=== PATIENT | male | born 1960 | race Caucasian/White ===

== ENCOUNTER 2019-07-28 15:04 | Observation (INO) | payer BC ==
[2019-07-28 15:14] VITALS: RESP 18
[2019-07-28] MEDS ORDERED: ACETAMINOPHEN TAB 325 MG TAB PO PRN (15:22)
[2019-07-28] MEDS ORDERED: NALOXONE 0.4 MG/ML 1 ML VIAL IV PRN (15:22)
--- NOTE | 2019-07-28 15:34 | ED ---
General Adult HPI - General Chief complaint: Neuro Symptoms/Deficit Stated complaint: Neuro Symptoms Time Seen by Provider: 07/28/19 15:07 Source: patient, EMS, RN notes reviewed, old records reviewed Mode of arrival: EMS Limitations: altered mental status - History of Present Illness Initial comments: 58-year-old male presented for evaluation of altered mental status and confusion. Around lunchtime today the patient had developed some confusion, he was confused about which leg to place his knee brace on. He did not know the day of the week or time. He was brought to [facility] for evaluation. He received workup including laboratory testing and head CT. Ultimately he was transferred to this institution for admission and neurology consultation. The patient has no complaints time my evaluation. He is alert and oriented 2, able to answer most questions. - Related Data Allergies Allergy/AdvReac Type Severity Reaction Status Date / Time aspirin Allergy Rash/Hives Verified 07/28/19 15:14 Review of Systems ROS Statement: Those systems with pertinent positive or pertinent negative responses have been documented in the HPI. ROS Other: All systems not noted in ROS Statement are negative. Past Medical History Past Medical History: Hyperlipidemia, Hypertension History of Any Multi-Drug Resistant Organisms: None Reported Past Surgical History: Orthopedic Surgery Additional Past Surgical History / Comment(s): right knee surgery Past Psychological History: No Psychological Hx Reported Smoking Status: Former smoker Past Alcohol Use History: None Reported Past Drug Use History: None Reported General Exam Limitations: altered mental status General appearance: alert, in no apparent distress Head exam: Present: atraumatic, normocephalic Eye exam: Present: normal appearance, PERRL ENT exam: Present: normal exam Neck exam: Present: normal inspection. Absent: tenderness, meningismus Respiratory exam: Present: normal lung sounds bilaterally. Absent: respiratory distress, wheezes Cardiovascular Exam: Present: regular rate, normal rhythm GI/Abdominal exam: Present: soft. Absent: distended, tenderness, guarding Extremities exam: Present: normal inspection, normal capillary refill. Absent: pedal edema Neurological exam: Present: alert, CN II-XII intact. Absent: oriented X3, motor sensory deficit (No focal findings) Psychiatric exam: Present: normal affect, normal mood Skin exam: Present: warm, dry, intact. Absent: cyanosis, diaphoretic Course Vital Signs 07/28/19 15:06 Temperature 97.8 F Pulse Rate 79 Respiratory 18 Rate Blood Pressure 146/98 O2 Sat by Pulse 98 Oximetry Medical Decision Making - Medical Decision Making 58-year-old transferred for neurology consultation. Patient is well-appearing, stable vitals, he has a nonfocal neurologic exam. Head CT from [facility] was negative for acute intracranial pathology. Patient received a chest x-ray which was negative for acute cardio pulmonary disease. He had normal electrolytes, normal kidney function, normal blood glucose. He had a white blood cell count of 8.7 hemoglobin 14.7. His alcohol level was 0. Denying any complaints time my evaluation. He is admitted from the emergency department, case is discussed with Dr. Marte he will admit. Disposition Clinical Impression: AMS (altered mental status) Disposition: ADMITTED IP TO THIS [facility] Condition: Stable Is patient prescribed a controlled substance at d/c from ED?: No Referrals: Lorenzo Pham DO [Primary Care Provider] - 1-2 days Decision to Admit Reason: Admit from EC Decision Date: 07/28/19 Decision Time: 15:33
--- NOTE | 2019-07-28 17:39 | P.CNNES ---
History of Present Illness Consult date: 07/28/19 Requesting physician: Bright Baxter Reason for Consult: Altered mental status History of Present Illness: Patient is a 58-year-old male came to the hospital for evaluation of altered mental status and confusion. Patient at this time does not remember what happened to him. He does not know how he came to the hospital. He does not know what happened this morning, or yesterday. He thinks that he was [place] the chimney, which he does not remember when he was doing it, and if he was actually doing it or dreaming. Patient does know that he lives with his , has 3 daughters. 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 History obtained from electronic medical records as below. Patient was brought to the hospital at 1 PM today at [facility] for altered mental status. His blood pressure on arrival was 139/83, pulse rate 74, patient was afebrile. It was reported in the [facility] ED report, the patient's brought him to the hospital secondary to her noticing that he was not acting himself. He was fine when he woke up in the morning. At 11 AM she left him home to run errands at which time she stated he was acting himself. Upon her return at around 12:30 PM, she noticed that he was confused had issues with short-term memory and was acting unusual. She mentioned that he was putting in a knee brace on the wrong leg. He could not remember what day it was. He was brought to the hospital by his . Last night and this morning he was perfectly fine. There is no report of cough, cold flu fever chills shortness of breath or any other complaints. Patient was transferred to [facility] as a direct admit for neurological evaluation. Patient had an EKG which showed sinus rhythm. Patient's blood test shows normal CMP although AST is minimally elevated at 38. Blood alcohol level negative, lipase normal CBC normal, glucose 67. Chest x-ray is normal. CT head is normal. Paranasal sinuses clear. Patient has history of hypertension but no diabetes. Patient has hyperlipidemia. He takes medication for blood pressure and cholesterol but does not take any aspirin. Patient states he has history of headaches a lot when he was a child, but he has outgrown it. Not sure if these are migraines. Did not use to get any focal symptoms with these headaches. Patient denies any numbness tingling focal weakness problem with the vision, headache. Does not remember hitting his head. No history of seizures. He denies any tobacco use, drinks alcohol 3-4 on the weekend. Does not do any drugs. Denies personal or family history of epilepsy. Review of Systems As above in detail. Denies any headache with the vision process. Denies diplopia, dysphagia. Denies nausea vomiting diarrhea. Denies headache injury. No history of seizures. On 14 point review of systems unremarkable. Past Medical History Past Medical History: Hyperlipidemia, Hypertension History of Any Multi-Drug Resistant Organisms: None Reported Past Surgical History: Orthopedic Surgery Additional Past Surgical History / Comment(s): right knee surgery Past Psychological History: No Psychological Hx Reported Smoking Status: Former smoker Past Alcohol Use History: None Reported Past Drug Use History: None Reported Medications and Allergies Home Medications Medication Instructions Recorded Confirmed Type Atorvastatin [Lipitor] 80 mg PO HS 07/28/19 07/28/19 History Ezetimibe [Zetia] 10 mg PO DAILY 07/28/19 07/28/19 History Lisinopril-Hctz 20-12.5 mg 1 tab PO DAILY 07/28/19 07/28/19 History [Zestoretic 20-12.5] amLODIPine [Norvasc] 5 mg PO DAILY 07/28/19 07/28/19 History traMADol HCl [Ultram] 50 mg PO Q6H PRN 07/28/19 07/28/19 History Allergies Allergy/AdvReac Type Severity Reaction Status Date / Time aspirin Allergy Rash/Hives Verified 07/28/19 16:43 Physical Examination - Vital Signs Vital Signs: Vital Signs Temp Pulse Resp BP Pulse Ox 07/28/19 15:06 97.8 F 79 18 146/98 98 Intake and Output 07/28/19 07/28/19 07/28/19 06:59 14:59 22:59 Other: Weight 122.47 kg On examination patient is a middle aged male, in no distress. Patient is alert and awake. Patient knows his date of and that he is 58 years of age. He knows his address. Patient could not tell what month or the year is it. He did look at the front board as stated was 07/28/2019. He also looked at the front board stating that he is in [facility] in [place]. Otherwise he probably did not know where he was at. Patient does not remember what time he went to bed last night, what time he woke up this morning, or what he did yesterday or today. Speech and language functions are normal. Attention and concentration is slightly limited, whereas fund of knowledge is difficult to assess. On cranial nerve examination, pupils are round and reactive to light, visual heredia are full on confrontation. Extraocular muscles are intact with no nystagmus. Face is symmetric, tongue protrudes the midline. Palatal elevation and sensation normal. On muscle strength testing there is no pronator drift and the strength is normal in arms and legs distally and proximally. Reflexes are 1+ and plantars downgoing sensory touch is equal. No ataxia for [id number] testing. Tone and bulk of muscles normal. Sensory touch is equal with no neglect on double simultaneous stimulation. There is no obvious bruit, S1 and S2 audible. Peripheral pulses present. Assessment and Plan Assessment: * 58-year-old male admitted with acute onset of amnesia. Possible transient global amnesia. Patient apparently has some degree of antegrade as well as retrograde amnesia. Rule out CVA, partial seizure. Denies any history of head trauma. * Hypertension * Hyperlipidemia * Obesity Plan: * We will perform an MRI of the brain with and without contrast to rule CVA or mass lesion. MRA of the head to rule out any intracranial atherosclerosis or aneurysm. * Carotid Doppler to rule out stenosis. * 2-D echo * EEG. * Further management based upon above test results.
[2019-07-28] MEDS ORDERED: traMADol 50 MG TAB PO PRN (20:42)
--- NOTE | 2019-07-28 22:09 | US ---
EXAMINATION TYPE: US carotid duplex BILAT DATE OF EXAM: 07/28/2019 COMPARISON: NONE CLINICAL HISTORY: Amnesia, CVA, ?seizure. Amnesia, CVA, seizure. HTN. Hyperlipidemia. EXAM MEASUREMENTS: RIGHT: Peak Systolic Velocity (PSV) cm/sec ----- Right CCA: 95.1 ----- Right ICA: 97.7 ----- Right ECA: 137.8 ICA/CCA ratio: 1.0 RIGHT: End Diastole cm/sec ----- Right CCA: 24.1 ----- Right ICA: 20.9 ----- Right ECA: 18.3 LEFT: Peak Systolic Velocity (PSV) cm/sec ----- Left CCA: 102.8 ----- Left ICA: 92.0 ----- Left ECA: 118.9 ICA/CCA ratio: 0.9 LEFT: End Diastole cm/sec ----- Left CCA: 28.7 ----- Left ICA: 27.2 ----- Left ECA: 22.3 VERTEBRALS (direction of flow): Right Vertebral: Antegrade Left Vertebral: Antegrade Rhythm: Normal Limited visibility of right distal ICA. Elevated velocities obtained bilateral ECA. Hyperechoic plaqu e seen left carotid bifurcation. IMPRESSION: There is antegrade flow in the vertebral arteries. There is bilateral plaque formation and less than 50% stenosis in both internal carotid arteries. Criteria for Assigning % of Stenosis / Diameter reduction (Estimation based on the indirect measurements of the internal carotid artery velocities (ICA PSV). 1. Normal (no stenosis)=ICA PSV < 125 cm/s: ratio < 2.0: ICA EDV<40 cm/s. 2. Less than 50% stenosis=ICA PSV < 125 cm/s: ratio < 2.0: ICA EDV<40 cm/s. 3. 50 to 69% stenosis=ICA PSV of 125 to 230 cm/s: ration 2.0 ? 4.0: ICA EDV 40-100 cm/s. 4. Greater than 70% stenosis to near occlusion= ICA PSV > 230 cm/s: ratio > 4.0: ICA EDV > 100 cm/s. 5. Near occlusion= ICA PSV velocities may be low or undetectable: variable ratio and ICA EDV. 6. Total occlusion=unable to detect flow.
[2019-07-28] MEDS: ATORVASTATIN 80 MG TAB PO SCH (22:30)
[2019-07-28] MEDS: ENOXAPARIN 40 MG/0.4 ML SYRINGE SQ SCH (22:30)
[2019-07-28] MEDS: amLODIPine 5 MG TAB PO SCH (22:30)
[2019-07-29] MEDS ORDERED: EZETIMIBE 10 MG TAB PO SCH (09:00)
[2019-07-29] MEDS ORDERED: LISINOPRIL-HCTZ 20-12.5 MG 1 EACH TAB PO SCH (09:00)
[2019-07-29] MEDS: ENOXAPARIN 40 MG/0.4 ML SYRINGE SQ SCH (09:17)
[2019-07-29] MEDS: amLODIPine 5 MG TAB PO SCH (09:17)
[2019-07-29 11:28] VITALS: BP 156/79; PULSE 81; TEMP 98.6
--- NOTE | 2019-07-29 13:41 | EEG ---
ELECTROENCEPHALOGRAM REPORT DATE OF SERVICE: 07/29/2019 PREAMBLE: This 58-year-old male admitted with an episode of loss of memory and amnesia. This study is performed to rule out any epileptiform activity. EEG FINDINGS: A routine 21 channel EEG was recorded utilizing 10/20 international system with bipolar and referential montages. The background consists of well developed, well regulated, moderate voltage activity in 8 to 9 Hz alpha. Background is posterior dominant and reactive to eye opening and closing. Photic driving response was seen with some flash frequencies. Different stages of sleep were not seen. No focal or generalized epileptiform activity was seen. EKG lead revealed no arrhythmia. IMPRESSION: This is a normal awake EEG. No focal lateralized or epileptiform activity was seen. MMODL / IJN: [id number] /
--- NOTE | 2019-07-29 16:04 | MR ---
EXAMINATION TYPE: MR brain wo/w con DATE OF EXAM: 07/29/2019 3:57 PM COMPARISON: NONE HISTORY: Altered Mental Status and confusion yesterday. Patient was unaware of where he was or what h e was doing. Has cleared up today. FINDINGS: The ventricles, basal cisterns and sulci overlying the cerebral convexities are mildly enlarged. There is evidence of mild periventricular white matter ischemic demyelination. Remote deep white matter insults are also noted. No acute edema is seen on diffusion weighted imaging. There is no evidence for midline shift or mass effect. Acute intracranial hemorrhage or extra-axial collection is not evident. The paranasal sinuses and mastoid air cells are well-aerated. IMPRESSION: Age-related atrophic and chronic small vessel ischemic change. No acute intracranial process at this time.
--- NOTE | 2019-07-29 16:05 | MR ---
EXAMINATION TYPE: MR angio head wo con DATE OF EXAM: 07/29/2019 3:58 PM COMPARISON: NONE HISTORY: Altered Mental Status and confusion yesterday. Patient was unaware of where he was or what h e was doing. Has cleared up today. Three-dimensional [id number] intracranial MRA was performed with multiple intensity projection im ages submitted and source data reviewed at the workstation. The vertebrobasilar system as well as intracranial portions of the internal carotid arteries and thei r major tributaries are patent. I do not see evidence for sizable aneurysm or vascular malformation. IMPRESSION: Normal study.
--- NOTE | 2019-07-29 16:21 | P.PN ---
Subjective Progress Note Date: 07/29/19 Patient states he is feeling better. He offers no complaints. Patient's retrograde amnesia has improved. Patient now can remember what he did the day prior to arrival. He remembers cutting and mowing the lawn, putting trash bin inside, watching TV. He will remembers yesterday morning that he was talking to lnae around his house and then next thing he remembers is waking up in the ER. Patient able to remember me from yesterday. Patient denies any focal symptoms. Objective - Vital Signs Vital signs: Vital Signs Temp 98.6 F 07/29/19 11:05 Pulse 81 07/29/19 11:05 Resp 18 07/29/19 11:05 BP 156/79 07/29/19 11:05 Pulse Ox 96 07/29/19 11:05 Intake & Output 07/28/19 07/29/19 07/29/19 18:59 06:59 18:59 Intake Total 720 Balance 720 Weight 122.47 kg Intake: Oral 720 Other: Voiding Method Urinal Urinal # Voids 2 - Exam Patient is alert and awake fully oriented. Speech and language functions are normal. Cranial nerves are normal. Muscle strength is normal gait appears very normal. Assessment and Plan Assessment: * Probable transient global amnesia. Patient apparently has some degree of antegrade as well as retrograde amnesia. Rule out CVA, partial seizure. Denies any history of head trauma. * Hypertension * Hyperlipidemia * Obesity Plan: * MRI of the brain with and without contrast negative for any CVA. Age-related atrophic and chronic small vessel ischemic change. MRA of the head completely normal. * Carotid Doppler revealed bilateral plaque formation, less than 50% stenosis in both ICAs. Antegrade flow in both vertebral arteries. * 2-D echo showed severe concentric LVH. EF 55-60%. Normal left atrial size. Interatrial and interventricular septum was noted to be intact with bubble study. No PFO. * EEG was completely normal awake pattern. No epileptiform activity seen. * I would suggest patient starting aspirin 81 mg but he is ALLERGIC to it. Continue Lipitor 40 mg daily. Optimize Control of blood pressure, with current blood pressure 156/79. * Patient recently was placed on tramadol for knee pain. He says that he takes it 1 tablet every few days when needed. He did take one tablet the night prior and one tablet on the morning of this admission. Tramadol can lower seizure threshold. Suggested patient to stop tramadol. * Patient neurologically clear for discharge.
--- NOTE | 2019-07-29 16:32 | ECHOF ---
Referral Reason:Transient amnesia,?CVA MEASUREMENTS -------- HEIGHT: 182.9 cm WEIGHT: 122.5 kg BP: 139/89 RVIDd: 5.1 cm (< 3.3) IVSd: 1.8 cm (0.6 - 1.1) LVIDd: 4.4 cm (3.9 - 5.3) LVPWd: 2.1 cm (0.6 - 1.1) IVSs: 2.2 cm LVIDs: 2.1 cm LVPWs: 2.3 cm LAESV Index (A-L): 22.69 ml/m Ao Diam: 3.2 cm (2.0 - 3.7) AV Cusp: 1.7 cm (1.5 - 2.6) MV EXCURSION: 19.783 mm (> 18.000) MV EF SLOPE: 94 mm/s (70 - 150) EPSS: 0.7 cm MV E Sagar: 0.54 m/s MV DecT: 284 ms MV A Sagar: 0.65 m/s MV E/A Ratio: 0.84 RAP: 5.00 mmHg RVSP: 26.87 mmHg FINDINGS -------- Sinus rhythm. This was a technically difficult study with suboptimal views. The left ventricular size is normal. There is severe concentric left ventricular hypertrophy. Ove rall left ventricular systolic function is normal with, an EF between 55 - 60 %. The diastolic fill ing pattern is normal for the age of the patient 9.32. The right ventricle is moderate to severely enlarged. Normal LA size by volume 22+/-6 ml/m2. The right atrium was not well visualized. Contrast study was performed with 2 iv injections of 8 ccs of agitated normal saline, at rest, and wi th cough. xx ml of Lumason was utilized for enhancement of images. Interatrial and interventricular septum intact. The aortic valve is trileaflet, and appears structurally normal. No aortic stenosis or regurgitation. The mitral valve is normal. There is trace mitral regurgitation. Mild tricuspid regurgitation present. There is no evidence of pulmonary hypertension. The right v entricular systolic pressure, as measured by Doppler, is 26.87mmHg. The pulmonic valve was not well visualized. There is no pulmonic regurgitation present. The aortic root size is normal. IVC Not well visulized. There is no pericardial effusion. CONCLUSIONS -------- 1. This was a technically difficult study with suboptimal views. 2. There is severe concentric left ventricular hypertrophy. 3. Overall left ventricular systolic function is normal with, an EF between 55 - 60 %. 4. The diastolic filling pattern is normal for the age of the patient 9.32 5. The right ventricle is moderate to severely enlarged. 6. Normal LA size by volume 22+/-6 ml/m2. 7. Contrast study was performed with 2 iv injections of 8 ccs of agitated normal saline, at rest, and with cough. 8. xx ml of Lumason was utilized for enhancement of images. 9. Interatrial and interventricular septum intact. 10. The aortic valve is trileaflet, and appears structurally normal. No aortic stenosis or regurgitat ion. 11. There is trace mitral regurgitation. 12. Mild tricuspid regurgitation present. 13. There is no evidence of pulmonary hypertension. CARBIDE POWDER PROCESSOR: Nicolle Moore RDCS
[2019-07-29] MEDS ORDERED: CLOPIDOGREL 75 MG TAB PO STA (18:56)
--- NOTE | 2019-07-29 18:56 | P.HPIM ---
History of Present Illness H&P Date: 07/29/19 Chief Complaint: Episode of forgetfulness History of presenting complaint: This is a pleasant 58-year-old patient of Dr. Ludwin Wilkerson. Chronic stable medical conditions include hypertension, hyperlipidemia, obesity. Does get pain in the left knee and sometimes takes Ultram. History of not around lunchtime he started getting confused for example about which like to put his brace on. He also not sure about the day of the week or time. According to the patient is repeating himself. Initially taken to [facility] from where he was transferred here because of neurological services. Initial computed tomography scan was negative. No other focal symptoms. No sore this patient is moaning patient's back to himself. No prior evidence of history of TIA or stroke. Neurology was consulted. Review of systems: GEN.: None EYES: None HEENT: None NECK: None RESPIRATORY: None CARDIOVASCULAR: None GASTROINTESTINAL: None GENITOURINARY: None MUSCULOSKELETAL: Left knee pain LYMPHATICS: None HEMATOLOGICAL: None PSYCHIATRY: None NEUROLOGICAL: [As above Past medical history to include: Hypertension, hyperlipidemia, left knee pain, Social history: Does smoke in the past. No alcohol. . Works at [employer]E Physical examination: VITAL SIGNS: 97.8, 79, 18, 146/98, 98% on room air GENERAL: [BMI 36.6, laying in bed, comfortable. EYES: Pupils equal. Conjunctiva normal. HEENT: External appearance of nose and ears normal, oral cavity grossly normal. NECK: JVD not raised; masses not palpable. HEART: First and second heart sounds are normal; no edema. LUNGS: Respiratory rate normal; clear to auscultation. ABDOMEN: Soft, nontender, liver spleen not palpable, no masses palpable. PSYCH: Alert and oriented x3; mood and affect normal. NEUROLOGICAL: Cranial nerves grossly intact; no facial asymmetry, power and sensation grossly intact. LYMPHATICS: No lymph nodes palpable in the axilla and neck INVESTIGATIONS, reviewed in the clinical context: Lab work from [facility]. Carotid Doppler-bilateral plaque with less than 50% stenosis Assessment: -Transient global amnesia that is more of a manifestation of a TIA. Patient is much improved from yesterday. Telemetry back to his baseline. Initial workup was in ordered. Including MRI. MRA. -Essential hypertension -Hyperlipidemia -Obesity BMI 36.6 Plan: As patient ALLERGIC to aspirin we'll give the patient Plavix. Lipid-lowering agents. Home medications to continue. Lovenox for DVT prophylaxis. Additional testing is been ordered. Follow-up with neurology. Neuro checks in place. EEG also ordered. Past Medical History Past Medical History: Hyperlipidemia, Hypertension History of Any Multi-Drug Resistant Organisms: None Reported Past Surgical History: Orthopedic Surgery Additional Past Surgical History / Comment(s): right knee surgery Past Anesthesia/Blood Transfusion Reactions: No Reported Reaction Past Psychological History: No Psychological Hx Reported Smoking Status: Former smoker Past Alcohol Use History: None Reported Past Drug Use History: None Reported - Past Family History Father Family Medical History: Myocardial Infarction ([place]) Mother Family Medical History: Hyperlipidemia Medications and Allergies Home Medications Medication Instructions Recorded Confirmed Type Atorvastatin [Lipitor] 80 mg PO HS 07/28/19 07/28/19 History Ezetimibe [Zetia] 10 mg PO DAILY 07/28/19 07/28/19 History Lisinopril-Hctz 20-12.5 mg 1 tab PO DAILY 07/28/19 07/28/19 History [Zestoretic 20-12.5] amLODIPine [Norvasc] 5 mg PO DAILY 07/28/19 07/28/19 History traMADol HCl [Ultram] 50 mg PO Q6H PRN 07/28/19 07/28/19 History Allergies Allergy/AdvReac Type Severity Reaction Status Date / Time aspirin Allergy Rash/Hives Verified 07/28/19 16:43 Physical Exam Vitals: Vital Signs Temp Pulse Pulse Resp BP BP Pulse Ox 07/29/19 04:30 97.8 F 71 18 139/89 96 07/29/19 00:00 18 07/28/19 21:04 98.4 F 86 18 162/76 97 07/28/19 21:01 18 07/28/19 16:27 98.4 F 79 18 163/99 97 07/28/19 16:00 98.2 F 82 18 152/82 97 07/28/19 15:06 97.8 F 79 18 146/98 98 Intake and Output 07/28/19 07/29/19 07/29/19 22:59 06:59 14:59 Intake Total 240 480 Balance 240 480 Intake: Oral 240 480 Other: Voiding Method Urinal Urinal Urinal # Voids 1 2 Weight 122.47 kg Thrombosis Risk Factor Assmnt - Choose All That Apply Each Factor Represents 1 point: Age 41-60 years, Obesity (BMI >25) Other congenital or acquired thrombophilia - If yes, enter type in comment: No Thrombosis Risk Factor Assessment Total Risk Factor Score: 2 Thrombosis Risk Factor Assessment Level: Low Risk
[2019-07-29] MEDS: ATORVASTATIN 80 MG TAB PO SCH (19:34)
--- NOTE | 2019-07-29 21:28 | P.DS ---
Providers Date of admission: 07/28/19 15:22 Expected date of discharge: 07/29/19 Attending physician: Patrice Marte Consults: 07/28/19 15:26 Consult Physician Routine Consulting Provider: Anna Roberts Consult Reason/Comments: AMS Do you want consulting provider notified?: Yes Primary care physician: Lorenzo Mascorro [facility] Course: Chief Complaint: Episode of forgetfulness History of presenting complaint: This is a pleasant 58-year-old patient of Dr. Ludwin Wilkerson. Chronic stable medical conditions include hypertension, hyperlipidemia, obesity. Does get pain in the left knee and sometimes takes Ultram. History of not around lunchtime he started getting confused for example about which like to put his brace on. He also not sure about the day of the week or time. According to the patient is repeating himself. Initially taken to [facility] from where he was transferred here because of neurological services. Initial computed tomography scan was negative. No other focal symptoms. No sore this patient is moaning patient's back to himself. No prior evidence of history of TIA or stroke. Neurology was consulted. Patient's carotid Doppler, 2-D echo, EEG, MRI and MRA of the brain all unremarkable. Bubble study was negative for PFO. Severe concentric left medical hypertrophy on echo. EF 55-60% -Diagnosed with transient global amnesia. Back to baseline prior to discharge. We will change lisinopril hydrochlorothiazide to 1 tablet twice a day Consultation: Dr. Dai from neurology. Physical examination: VITAL SIGNS: 98.6, 81, 18, 156/79, 96% on room air GENERAL: [BMI 36.6, laying in bed, comfortable. EYES: Pupils equal. Conjunctiva normal. HEENT: External appearance of nose and ears normal, oral cavity grossly normal. NECK: JVD not raised; masses not palpable. HEART: First and second heart sounds are normal; no edema. LUNGS: Respiratory rate normal; clear to auscultation. ABDOMEN: Soft, nontender, liver spleen not palpable, no masses palpable. PSYCH: Alert and oriented x3; mood and affect normal. NEUROLOGICAL: Cranial nerves grossly intact; no facial asymmetry, power and sensation grossly intact. INVESTIGATIONS, reviewed in the clinical context: Lab work from [facility]. Carotid Doppler-bilateral plaque with less than 50% stenosis EKG negative for seizure, Doppler-no significant stenosis, MRA, MRI of the brain-both unremarkable 2-D echo-EF 55-60% with severe concentric hypertrophy Assessment: -Transient global amnesia that is more of a manifestation of a TIA. Patient is much improved from yesterday. Telemetry back to his baseline. Initial workup was in ordered. Including MRI. MRA. -Essential hypertension -Hypertensive heart disease -Hyperlipidemia -Obesity BMI 36.6 Plan: Home Patient Condition at Discharge: Stable Plan - Discharge Summary Discharge Rx Participant: No New Discharge Prescriptions: New Clopidogrel Bisulfate [Plavix] 75 mg PO DAILY #30 tab Continue Ezetimibe [Zetia] 10 mg PO DAILY amLODIPine [Norvasc] 5 mg PO DAILY Lisinopril-Hctz 20-12.5 mg [Zestoretic 20-12.5] 1 tab PO DAILY Atorvastatin [Lipitor] 80 mg PO HS traMADol HCl [Ultram] 50 mg PO Q6H PRN PRN Reason: Pain Discharge Medication List Atorvastatin [Lipitor] 80 mg PO HS 07/28/19 [History] Ezetimibe [Zetia] 10 mg PO DAILY 07/28/19 [History] Lisinopril-Hctz 20-12.5 mg [Zestoretic 20-12.5] 1 tab PO DAILY 07/28/19 [History] amLODIPine [Norvasc] 5 mg PO DAILY 07/28/19 [History] traMADol HCl [Ultram] 50 mg PO Q6H PRN 07/28/19 [History] Clopidogrel Bisulfate [Plavix] 75 mg PO DAILY #30 tab 07/29/19 [Rx] Follow up Appointment(s)/Referral(s): Lorenzo Pham DO [Primary Care Provider] - 1 Week Kavon Lock MD [STAFF PHYSICIAN] - 1 Week Patient Instructions/Handouts: Altered Mental Status (GEN) Discharge Disposition: HOME SELF-CARE
== END 2019-07-29 19:50 | disposition home or self-care (01) ==
LOC: SUPCPDRO 15:04 → EC 15:04 → 5NMEDONC 15:22
PROVIDERS: ADMIT Hospitalist; ATTEND Hospitalist
DX: G45.4 Transient global amnesia (principal); I11.9 Hypertensive heart disease without heart failure; E78.5 Hyperlipidemia, unspecified; E66.9 Obesity, unspecified; Z68.36 Body mass index [BMI] 36.0-36.9, adult; R41.2 Retrograde amnesia; M25.562 Pain in left knee; Z79.891 Long term (current) use of opiate analgesic; Z88.6 Allergy status to analgesic agent; Z87.891 Personal history of nicotine dependence; Z79.899 Other long term (current) drug therapy; Z82.49 Family history of ischemic heart disease and other diseases of the circulatory system
CPT/HCPCS: 96372 ×2; 99285; 95816; 93306; 93880; 70544; 70553; G0378 ×2; J1650 ×2; A9585; Q9950